=== PATIENT | male | born 1950 | race Caucasian/White ===

== ENCOUNTER 2016-02-22 09:00 | Inpatient (IN) | payer MEDICARE ==
[2016-02-22 08:21] LABS: INR 1.1 INR (0.9-1.1); PROTHROMBIN TIME 12.6 SECONDS (9.0-13.6)
[2016-02-22 08:28] LABS: BASO % 0.1 % (0-2); HGB-HEMOGLOBIN 13.7 gm/dl (13.5-17.0); IMMATURE GRANULOCYTES ABSOLUTE 0.09 tho/cmm (0-0.03); IMMATURE GRANULOCYTES PERCENT 0.6 % (0-0.3); LYMPH % 7.3 % (20-45); LYMPH ABSOLUTE COUNT 1.2 tho/cmm (0.8-4.5); MCHC MEAN CORPUSCULAR HGB CONC 33.4 % (32.0-36.0); MCV (MEAN CELL VOLUME) 89.9 fl (82.0-96.0); MEAN PLATELET VOLUME 10.4 cmc (9.4-12.4); MONO % 4.1 % (0-12); MONOCYTE ABSOLUTE COUNT 0.7 tho/cmm (0.0-1.2); NEUTROPHIL ABSOLUTE COUNT 14.2 tho/cmm (1.6-8.0); NEUTROPHIL-AUTOMATED 14.2 tho/cmm (1.6-8.0); NEUTROPHILS % 87.9 % (40-80); PLATELET COUNT 271 tho/cmm (150-450); RED BLOOD COUNT 4.56 mil/cmm (4.40-5.70); RED CELL DISTRIBUTION WIDTH 13.4 % (12.4-16.4); WHITE BLOOD COUNT 16.1 tho/cmm (4.0-10.0)
[2016-02-22 08:35] LABS: ANION GAP 23 mmol/L (5-15); BLOOD UREA NITROGEN 31 mg/dl (6-25); CALCIUM 9.2 mg/dl (8.6-10.2); CARBON DIOXIDE-VENOUS 18 mmol/L (22-29); CHLORIDE 89 mmol/L (98-110); CREATININE 1.92 mg/dl (0.67-1.17); GLUCOSE 296 mg/dl (65-120); POTASSIUM 4.6 mmol/L (3.4-5.0); SODIUM 130 mmol/L (135-146); eGFR VALUE FOR BLACK 43 mL/Min
[~2016-02-22 09:00] MED LIST: CITRATE OF MAG300 M1 PO; DULCOLAX STOOL100 M1 PO; EX LAX MAXIMUM PO
[2016-02-22 09:46] LABS: URINE LEUKOCYTE ESTERASE POSITIVE (NEG)
[2016-02-22 09:47] LABS: URINE APPEARANCE CLOUDY; URINE BILIRUBIN NEGATIVE (NEG); URINE BLOOD LARGE (NEG); URINE COLOR RED; URINE GLUCOSE (UA) SMALL (NEG); URINE KETONE MODERATE (NEG); URINE NITRITE NEGATIVE (NEG); URINE SPECIFIC GRAVITY 1.009 (1.003-1.030)
[2016-02-22 09:51] LABS: URINE PROT SULFOSALICYLIC ACID 1+ (NEG)
[2016-02-22 09:52] LABS: URINE EPITHELIAL CELLS 0 /[HPF] (0-10); URINE RBC FULL FIELD /[HPF] (0-5); URINE WBC 0 /[HPF] (0-5)
[2016-02-22 14:33] LABS: HCT-HEMATOCRIT 36.9 % (36.0-53.5); HGB-HEMOGLOBIN 12.3 gm/dl (13.5-17.0); IMMATURE GRANULOCYTES ABSOLUTE 0.04 tho/cmm (0-0.03); IMMATURE GRANULOCYTES PERCENT 0.3 % (0-0.3); LYMPH % 10.1 % (20-45); LYMPH ABSOLUTE COUNT 1.4 tho/cmm (0.8-4.5); MCH (MEAN CORPUSCULAR HGB) 29.8 pg (28.0-32.0); MCHC MEAN CORPUSCULAR HGB CONC 33.3 % (32.0-36.0); MCV (MEAN CELL VOLUME) 89.3 fl (82.0-96.0); MEAN PLATELET VOLUME 10.4 cmc (9.4-12.4); MONO % 7.9 % (0-12); MONOCYTE ABSOLUTE COUNT 1.1 tho/cmm (0.0-1.2); NEUTROPHIL ABSOLUTE COUNT 10.9 tho/cmm (1.6-8.0); NEUTROPHIL-AUTOMATED 10.9 tho/cmm (1.6-8.0); NEUTROPHILS % 81.7 % (40-80); PLATELET COUNT 210 tho/cmm (150-450); RED BLOOD COUNT 4.13 mil/cmm (4.40-5.70); RED CELL DISTRIBUTION WIDTH 13.3 % (12.4-16.4); WHITE BLOOD COUNT 13.3 tho/cmm (4.0-10.0)
[2016-02-22 14:37] LABS: KETONE-BETA (WHOLE BLOOD) 0.6 mmol/L (0.0-0.6)
[2016-02-22 14:51] LABS: ALB/GLOB RATIO 1.3 (0.8-2.0); ALBUMIN 3.9 g/dl (3.5-5.2); ALKALINE PHOSPHATASE 62 U/L (40-129); ALT/SGPT 18 U/L (0-41); ANION GAP 15 mmol/L (5-15); AST/SGOT 18 U/L (0-40); BILIRUBIN,TOTAL 1.1 mg/dl (0.0-1.0); BLOOD UREA NITROGEN 28 mg/dl (6-25); CALCIUM 8.7 mg/dl (8.6-10.2); CARBON DIOXIDE-VENOUS 24 mmol/L (22-29); CHLORIDE 95 mmol/L (98-110); GLUCOSE 191 mg/dl (65-120); POTASSIUM 4.2 mmol/L (3.4-5.0); SODIUM 134 mmol/L (135-146); eGFR VALUE FOR BLACK >60 mL/Min
[2016-02-22 14:58] LABS: CREATININE 1.33 mg/dl (0.67-1.17)
[2016-02-22 15:11] LABS: PROCALCITONIN 0.09 ng/ml (0.05-0.09)
[2016-02-23 05:35] LABS: BASO % 0.1 % (0-2); EOS % 0.5 % (0-7); EOSINOPHIL ABSOLUTE COUNT 0.1 tho/cmm (0.0-0.7); HGB-HEMOGLOBIN 10.3 gm/dl (13.5-17.0); IMMATURE GRANULOCYTES ABSOLUTE 0.06 tho/cmm (0-0.03); IMMATURE GRANULOCYTES PERCENT 0.5 % (0-0.3); LYMPH % 7.5 % (20-45); MCH (MEAN CORPUSCULAR HGB) 29.5 pg (28.0-32.0); MCHC MEAN CORPUSCULAR HGB CONC 32.2 % (32.0-36.0); MCV (MEAN CELL VOLUME) 91.7 fl (82.0-96.0); MEAN PLATELET VOLUME 10.3 cmc (9.4-12.4); MONO % 11.1 % (0-12); MONOCYTE ABSOLUTE COUNT 1.5 tho/cmm (0.0-1.2); NEUTROPHIL ABSOLUTE COUNT 10.5 tho/cmm (1.6-8.0); NEUTROPHIL-AUTOMATED 10.5 tho/cmm (1.6-8.0); NEUTROPHILS % 80.3 % (40-80); PLATELET COUNT 200 tho/cmm (150-450); RED BLOOD COUNT 3.49 mil/cmm (4.40-5.70); RED CELL DISTRIBUTION WIDTH 13.8 % (12.4-16.4); WHITE BLOOD COUNT 13.1 tho/cmm (4.0-10.0)
[2016-02-23 05:53] LABS: ALB/GLOB RATIO 1.6 (0.8-2.0); ALBUMIN 3.2 g/dl (3.5-5.2); ALKALINE PHOSPHATASE 49 U/L (40-129); ALT/SGPT 17 U/L (0-41); ANION GAP 12 mmol/L (5-15); AST/SGOT 17 U/L (0-40); BILIRUBIN,TOTAL 0.8 mg/dl (0.0-1.0); BLOOD UREA NITROGEN 20 mg/dl (6-25); CALCIUM 7.9 mg/dl (8.6-10.2); CARBON DIOXIDE-VENOUS 24 mmol/L (22-29); CHLORIDE 104 mmol/L (98-110); CREATININE 0.94 mg/dl (0.67-1.17); GLUCOSE 169 mg/dl (65-120); POTASSIUM 3.9 mmol/L (3.4-5.0); SODIUM 140 mmol/L (135-146); eGFR VALUE FOR BLACK >60 mL/Min
[2016-02-24 06:42] LABS: ANION GAP 12 mmol/L (5-15); BLOOD UREA NITROGEN 11 mg/dl (6-25); CARBON DIOXIDE-VENOUS 23 mmol/L (22-29); CHLORIDE 104 mmol/L (98-110); CREATININE 0.64 mg/dl (0.67-1.17); GLUCOSE 145 mg/dl (65-120); POTASSIUM 4.2 mmol/L (3.4-5.0); eGFR VALUE FOR BLACK >60 mL/Min
[2016-02-24 07:19] LABS: EOS % 0.3 % (0-7); IMMATURE GRANULOCYTES ABSOLUTE 0.05 tho/cmm (0-0.03); IMMATURE GRANULOCYTES PERCENT 0.4 % (0-0.3); LYMPH % 12.9 % (20-45); LYMPH ABSOLUTE COUNT 1.5 tho/cmm (0.8-4.5); MCV (MEAN CELL VOLUME) 93.6 fl (82.0-96.0); MONO % 7.9 % (0-12); MONOCYTE ABSOLUTE COUNT 0.9 tho/cmm (0.0-1.2); NEUTROPHILS % 78.5 % (40-80); PLATELET COUNT 157 tho/cmm (150-450); RED BLOOD COUNT 2.67 mil/cmm (4.40-5.70); WHITE BLOOD COUNT 11.5 tho/cmm (4.0-10.0)
[2016-02-24 07:35] LABS: ANION GAP 8 mmol/L (5-15); BLOOD UREA NITROGEN 13 mg/dl (6-25); CALCIUM 7.8 mg/dl (8.6-10.2); CARBON DIOXIDE-VENOUS 27 mmol/L (22-29); CHLORIDE 104 mmol/L (98-110); CREATININE 0.77 mg/dl (0.67-1.17); GLUCOSE 155 mg/dl (65-120); POTASSIUM 4.1 mmol/L (3.4-5.0); SODIUM 139 mmol/L (135-146); eGFR VALUE FOR BLACK >60 mL/Min
[2016-02-24 07:52] LABS: SODIUM 139 mmol/L (135-146)
[2016-02-25 06:12] LABS: ANION GAP 8 mmol/L (5-15); BLOOD UREA NITROGEN 12 mg/dl (6-25); CALCIUM 7.4 mg/dl (8.6-10.2); CARBON DIOXIDE-VENOUS 30 mmol/L (22-29); CHLORIDE 101 mmol/L (98-110); CREATININE 0.74 mg/dl (0.67-1.17); GLUCOSE 131 mg/dl (65-120); POTASSIUM 3.7 mmol/L (3.4-5.0); SODIUM 139 mmol/L (135-146); eGFR VALUE FOR BLACK >60 mL/Min
[2016-02-27 06:23] LABS: ANION GAP 8 mmol/L (5-15); BLOOD UREA NITROGEN 11 mg/dl (6-25); CALCIUM 8.5 mg/dl (8.6-10.2); CARBON DIOXIDE-VENOUS 29 mmol/L (22-29); CHLORIDE 101 mmol/L (98-110); CREATININE 0.67 mg/dl (0.67-1.17); GLUCOSE 125 mg/dl (65-120); POTASSIUM 4.2 mmol/L (3.4-5.0); SODIUM 138 mmol/L (135-146); eGFR VALUE FOR BLACK >60 mL/Min
--- NOTE | 2016-02-27 20:52 | NUR ---
VN ROUNDING-PATIENT SITTING UP IN CHAIR WITH SOME PAIN BUT STATES IT IS TOLERABLE. WE DISCUSSED THAT HE HAS NOT VOIDED YET BUT HAS NOT REALLY TRIED HE HAS NOT HAVE THE URGE REALLY. I ASKED IF HE HAS DRANK VERY MUCH AND NO HE HASNT. I DID LET HIM KNOW THE NURSE WILL NEED TO BE DOING A BLADDER SCAN ON HIM BEFORE TOO MUCH LONGER TO SEE HOW FULL HIS BLADDER IS. NO OTHER QUESTIONS OR CONCERNS AT THIS TIME
[2016-02-29 01:21] LABS: URINE BILIRUBIN NEGATIVE (NEG); URINE BLOOD LARGE (NEG); URINE GLUCOSE (UA) NEGATIVE (NEG); URINE KETONE SMALL (NEG); URINE LEUKOCYTE ESTERASE NEGATIVE (NEG); URINE NITRITE NEGATIVE (NEG)
[2016-02-29 01:23] LABS: URINE APPEARANCE HAZY; URINE COLOR STRAW; URINE SPECIFIC GRAVITY 1.015 (1.003-1.030)
[2016-02-29 01:33] LABS: URINE PROT SULFOSALICYLIC ACID 2+ (NEG)
[2016-02-29 01:34] LABS: URINE BACTERIA 1+; URINE EPITHELIAL CELLS 0 /[HPF] (0-10); URINE RBC 30-50 /[HPF] (0-5); URINE WBC 0 /[HPF] (0-5)
[2016-03-01] MEDS ORDERED: PRINIVIL5 M1 PO (12:01)
[2016-03-01] MEDS ORDERED: FEOSOL325 M1 PO (12:01)
[2016-03-01] MEDS ORDERED: TYLENOL325 M2 PO (12:02)
[2016-03-01] MEDS ORDERED: NORVASC5 M2 PO (12:02)
[2016-03-01] MEDS ORDERED: MIRALAX17 G2 PO (12:07)
[2016-03-01] MEDS ORDERED: SENOKOT-S TABL1 EACH PO (12:08)
[2016-03-01] MEDS ORDERED: FLEETS ENEMA PR (12:11)
[2016-03-01] MEDS ORDERED: GLUCOPHAGE500 M3 PO (12:12)
== END 2016-03-01 14:40 | DRG 654 ==
LOC: EDMED 09:00 → EMR2 10:38 → PCUA 12:58 → ORW 02-23 18:04 → PACU 02-23 19:40 → 5WD 02-23 20:55
PROVIDERS: Emergency Medicine; Registered Nurse; ADMIT Family Medicine
PROC: 02HV33Z Insertion of Infusion Device into Superior Vena Cava, Percutaneous Approach (ICD-10-PCS; 2016-02-22)
PROC: 4A02X4A Measurement of Cardiac Electrical Activity, Guidance, External Approach (ICD-10-PCS; 2016-02-22)
PROC: 3C1ZX8Z Irrigation of Indwelling Device using Irrigating Substance, External Approach (ICD-10-PCS; 2016-02-22)
PROC: 0T7B8DZ Dilation of Bladder with Intraluminal Device, Via Natural or Artificial Opening Endoscopic (ICD-10-PCS; principal; 2016-02-23)
PROC: 0TBB8ZZ Excision of Bladder, Via Natural or Artificial Opening Endoscopic (ICD-10-PCS; 2016-02-23)
PROC: 0TCB8ZZ Extirpation of Matter from Bladder, Via Natural or Artificial Opening Endoscopic (ICD-10-PCS; 2016-02-23)
PROC: DTY27ZZ Contact Radiation of Bladder (ICD-10-PCS; 2016-02-27)
PROC: DTY27ZZ Contact Radiation of Bladder (ICD-10-PCS; 2016-02-28)
PROC: DTY27ZZ Contact Radiation of Bladder (ICD-10-PCS; 2016-02-29)
PROC: DTY27ZZ Contact Radiation of Bladder (ICD-10-PCS; 2016-03-01)
DX: C67.3 Malignant neoplasm of anterior wall of bladder (principal); N17.9 Acute kidney failure, unspecified; E87.2 Acidosis; T83.83XA Hemorrhage due to genitourinary prosthetic devices, implants and grafts, initial encounter; Z68.43 Body mass index [BMI] 50.0-59.9, adult; D62 Acute posthemorrhagic anemia; E11.9 Type 2 diabetes mellitus without complications; Y84.6 Urinary catheterization as the cause of abnormal reaction of the patient, or of later complication, without mention of misadventure at the time of the procedure; Y92.230 Patient room in hospital as the place of occurrence of the external cause; I10 Essential (primary) hypertension; Z87.891 Personal history of nicotine dependence; N30.81 Other cystitis with hematuria; E66.01 Morbid (severe) obesity due to excess calories; Z87.442 Personal history of urinary calculi; K59.00 Constipation, unspecified; G89.29 Other chronic pain; M54.9 Dorsalgia, unspecified
CPT/HCPCS: C1751; J0360; J0696; J1815; J2270; J2405; J2543; J3010; J3370; J7030; J7050; Q9967